=== PATIENT | female | born 1995 | race American Indian/Alaskan Native ===

== ENCOUNTER 2016-09-08 20:53 | Emergency (ER) | payer SELFPAY ==
[2016-09-08 20:54] VITALS: BMI 25.0
[2016-09-08 21:22] VITALS: RESP 20
--- NOTE | 2016-09-08 21:29 | ED PDOC ---
Arrival/HPI - General Chief Complaint: Abdominal Pain Time Seen by Provider: 09/08/16 21:15 Historian: Patient - History of Present Illness Narrative History of Present Illness (Text): 09/08/16 21:28 Leigha Caban is a 20 year old female, with no significant past medical history, who presents to the ED complaining of abdominal cramping for 1 week. Patient reports associated nausea and diarrhea. Patient denies any vomiting, urinary symptoms, fever, chills, chest pain, shortness of breath, or any other complaints. Time/Duration: 1 week Symptom Onset: Gradual Symptom Course: Unchanged Quality: Cramping Activities at Onset: Rest, Light Context: Home Past Medical History - Provider Review Nursing Documentation Reviewed: Yes - Past History Past History: No Previous - Infectious Disease Hx of Infectious Diseases: None - Tetanus Immunization Tetanus Immunization: Up to Date - Psychiatric Hx Psychophysiologic Disorder: No Hx Substance Use: No - Anesthesia Hx Anesthesia: No Family/Social History - Physician Review Nursing Documentation Reviewed: Yes Family/Social History: Unknown Family HX Smoking Status: Never Smoked Hx Alcohol Use: No Hx Substance Use: No Allergies/Home Meds Allergies/Adverse Reactions: Allergies No Known Allergies Allergy (Verified 12/02/14 12:22) Review of Systems - Physician Review All systems were reviewed & negative as marked: Yes - Review of Systems Constitutional: Normal. absent: Fevers Eyes: Normal ENT: Normal Respiratory: Normal. absent: SOB, Cough Cardiovascular: Normal. absent: Chest Pain Gastrointestinal: Abdominal Pain, Diarrhea, Nausea Genitourinary Female: Normal. absent: Dysuria, Frequency, Hematuria, Urine Output Changes Musculoskeletal: Normal. absent: Back Pain, Neck Pain Skin: Normal. absent: Rash Neurological: Normal. absent: Headache, Dizziness Endocrine: Normal Hemo/Lymphatic: Normal Psychiatric: Normal Physical Exam Vital Signs Reviewed: Yes Vital Signs Temp Pulse Resp BP Pulse Ox 09/08/16 21:17 99 F 73 20 154/81 H 97 Temperature: Afebrile Blood Pressure: Normal Pulse: Regular Respiratory Rate: Normal Appearance: Positive for: Well-Appearing, Non-Toxic, Comfortable Pain Distress: None Mental Status: Positive for: Alert and Oriented X 3 - Systems Exam Head: Present: Atraumatic, Normocephalic Pupils: Present: PERRL Extroacular Muscles: Present: EOMI Conjunctiva: Present: Normal Mouth: Present: Moist Mucous Membranes Neck: Present: Normal Range of Motion Respiratory/Chest: Present: Clear to Auscultation, Good Air Exchange. No: Respiratory Distress, Accessory Muscle Use Cardiovascular: Present: Regular Rate and Rhythm, Normal S1, S2. No: Murmurs Abdomen: Present: Normal Bowel Sounds. No: Tenderness, Distention, Peritoneal Signs Upper Extremity: Present: Normal Inspection. No: Cyanosis, Edema Lower Extremity: Present: Normal Inspection. No: Edema Neurological: Present: GCS=15, CN II-XII Intact, Speech Normal Skin: Present: Warm, Dry, Normal Color. No: Rashes Psychiatric: Present: Alert, Oriented x 3, Normal Insight, Normal Concentration Medical Decision Making ED Course and Treatment: 09/08/16 21:28 Impression: 20 year old female with abdominal cramping, nausea, and diarrhea for 1 week. Differential Diagnosis included but are not limited to: gastroenteritis Plan: -- Labs, lipase -- UA -- IV fluids -- Reassess and disposition Progress Notes: 09/08/16 21:47 RN reports positive urine HCG. Pt reports LNMP 2 weeks ago, P:0. Transvaginal US, beta-HCG, and blood type and screen ordered. 09/09/16 00:25 Reviewed sono, Transvaginal US shows: Transvaginal US shows: Uterus/cervix: Unremarkable in echogenicity and size measuring 6.5 x 3.3 x 4.4 cm. Normal endometrial stripe thickness, measuring 7.1 mm. No myometrial mass. Right ovary: Unremarkable in size measuring 3.6 x 2.6 x 3.9 cm. An anechoic focus is identified within the right ovary measuring 2.5 cm in greatest dimension. No mass. Normal blood flow. Left ovary: Unremarkable in echogenicity and size measuring 2.3 x 2.2 x 2.8 cm. No mass. Normal blood flow. Dominant follicle is detected measuring 9 mm in greatest dimension. Free fluid: No free fluid. IMPRESSION: Simple cyst within the right ovary measuring 2.5 cm in greatest dimension. 09/09/16 00:28 On re-evaluation, patient is resting comfortably, abdomen remains soft, and patient is tolerating PO. Patient feels comfortable going home. Patient will be discharged home. - Lab Interpretations Lab Results: 09/08/16 22:00 09/08/16 22:00 Lab Results 09/08/16 22:33: Blood Type Confirm O POSITIVE 09/08/16 22:00: Blood Type O POSITIVE, Antibody Screen Negative, BBK History Checked No verified bt 09/08/16 22:00: Beta HCG, Quant 2280.40 H 09/08/16 22:00: WBC 7.2, RBC 4.31, Hgb 12.1, Hct 38.1, MCV 88.4, MCH 28.1, MCHC 31.8, RDW 14.2, Plt Count 257, MPV 9.6 09/08/16 22:00: Sodium 139, Potassium 4.2, Chloride 103, Carbon Dioxide 26, Anion Gap 14, BUN 11, Creatinine 0.8, Est GFR ( Amer) > 60, Est GFR (Non- Af Amer) > 60, Random Glucose 77, Calcium 10.3, Total Bilirubin 0.4, AST 24, ALT 26, Alkaline Phosphatase 59, Total Protein 8.0, Albumin 4.4, Globulin 3.7, Albumin/Globulin Ratio 1.2, Lipase 208 09/08/16 22:00: Urine Color Yellow, Urine Appearance Clear, Urine pH 6.5, Ur Specific Mouthcard 1.025, Urine Protein Negative, Urine Glucose (UA) Negative, Urine Ketones Negative, Urine Blood Negative, Urine Nitrate Negative, Urine Bilirubin Negative, Urine Urobilinogen 0.2, Ur Leukocyte Esterase Negative, Urine HCG, Qual Positive I have reviewed the lab results: Yes - RAD Interpretation Radiology Orders: 09/08/16 21:47 TRANSVAGINAL [US] Stat Manager Cardiac: Radiologist - Medication Orders Current Medication Orders: Discontinued Medications Sodium Chloride (Sodium Chloride 0.9%) 1,000 mls @ 999 mls/hr IV .[id number] STA Stop: 09/08/16 22:30 Last Admin: 09/08/16 21:52 Dose: 999 mls/hr - Scribe Statement The provider has reviewed the documentation as recorded by the Gunjan Mason Provider Attestation: All medical record entries made by the Krishnaibsusan were at my direction and personally dictated by me. I have reviewed the chart and agree that the record accurately reflects my personal performance of the history, physical exam, medical decision making, and the department course for this patient. I have also personally directed, reviewed, and agree with the discharge instructions and disposition. Disposition/Present on Arrival - Present on Arrival Any Indicators Present on Arrival: No History of DVT/PE: No History of Uncontrolled Diabetes: No Urinary Catheter: No History of Decub. Ulcer: No History Surgical Site Infection Following: None - Disposition Have Diagnosis and Disposition been Completed?: Yes Diagnosis: Early stage of , Gastroenteritis Disposition: HOME/ ROUTINE Disposition Time: 00:28 Patient Plan: Discharge Patient Problems: Current Active Problems Problem Status Onset Early stage of Acute Gastroenteritis Acute Condition: GOOD Discharge Instructions (ExitCare): (ED), Gastroenteritis (ED) Additional Instructions: Drink plenty of liquids/rest/follow up with your armored truck driver this week Referrals: Momailirina Anderson Rejulia, [Primary Care Provider] - Follow up with primary Forms: WORK NOTE
[2016-09-08] MEDS ORDERED: Sodium Chloride 0.9% 1,000 ML IV STA (21:30)
[2016-09-08 22:15] LABS: HEMOGLOBIN 12.1 gm/dL (12.0-16.0); MEAN CELL VOLUME 88.4 fL (80.0-105.0); MEAN CORPUSCULAR HEMOGLOBIN 28.1 pg (25.0-35.0); MEAN CORPUSCULAR HGB CONC 31.8 g/dl (31.0-37.0); MEAN PLATELET VOLUME 9.6 fl (7.0-11.0); PH,URINE 6.5 (4.7-8.0); RBC 4.31 10^6/uL (3.5-6.1); RED CELL DISTRIBUTION WIDTH 14.2 % (11.5-14.5); URINE BILIRUBIN NEGATIVE (NEGATIVE); URINE BLOOD NEGATIVE (NEGATIVE); URINE GLUCOSE (UA) NEGATIVE (NEGATIVE); URINE LEUKOCYTE ESTERASE NEGATIVE Leu/uL (NEGATIVE); URINE NITRATE NEGATIVE (NEGATIVE); URINE PROTEIN NEGATIVE mg/dL (<30 mg/dL); URINE UROBILINOGEN 0.2 E.U./dL (<1 E.U./dL); WHITE BLOOD COUNT 7.2 10^3/ul (4.5-11.0)
[2016-09-08 22:19] LABS: URINE APPEARANCE CLEAR (CLEAR); URINE COLOR YELLOW (YELLOW)
[2016-09-08 22:20] LABS: ALB/GLOB RATIO 1.2 (1.1-1.8); ALBUMIN 4.4 g/dL (3.0-4.8); AST/SGOT 24 U/L (15-39); BLOOD UREA NITROGEN 11 mg/dL (7-21); CALCIUM 10.3 mg/dL (8.4-10.5); GFR AFRICAN-AMERICAN > 60; GFR NON-AFRICAN AMERICAN > 60; LIPASE 208 U/L (23-300)
[2016-09-08 22:21] LABS: HCG,QUALITATIVE URINE POSITIVE (NEGATIVE)
[2016-09-08 22:46] LABS: ALT/SGPT 26 U/L (7-56)
--- NOTE | 2016-09-08 23:46 | US ---
EXAM: US Pelvis, Transvaginal CLINICAL HISTORY: 20 years old, female; Pain; Abdominal pain; Lower abdomen TECHNIQUE: Real-time transvaginal pelvic ultrasound (complete) with image documentation. Transvaginal imaging was used for better evaluation of the endometrium and adnexa. COMPARISON: No relevant prior studies available. FINDINGS: Uterus/cervix: Unremarkable in echogenicity and size measuring 6.5 x 3.3 x 4.4 cm. Normal endometrial stripe thickness, measuring 7.1 mm. No myometrial mass. Right ovary: Unremarkable in size measuring 3.6 x 2.6 x 3.9 cm. An anechoic focus is identified within the right ovary measuring 2.5 cm in greatest dimension. No mass. Normal blood flow. Left ovary: Unremarkable in echogenicity and size measuring 2.3 x 2.2 x 2.8 cm. No mass. Normal blood flow. Dominant follicle is detected measuring 9 mm in greatest dimension. Free fluid: No free fluid. IMPRESSION: Simple cyst within the right ovary measuring 2.5 cm in greatest dimension.
[2016-09-09 00:52] VITALS: BP 124/83; PULSE 85; TEMP 98; O2SAT 98
== END 2016-09-09 00:57 | disposition home or self-care (01) ==
LOC: ED 20:53
DX: O26.891 Other specified pregnancy related conditions, first trimester (principal); K52.9 Noninfective gastroenteritis and colitis, unspecified; Z3A.00 Weeks of gestation of pregnancy not specified
CPT/HCPCS: 76830; 80053; 81003; 83690; 84702; 84703; 85027; 86850; 86900; 99284; J7040

== ENCOUNTER 2016-09-11 18:42 | Emergency (ER) | payer BC ==
[2016-09-11 19:00] VITALS: BMI 40.2
[2016-09-11 20:11] LABS: BASO # 0.02 K/mm3 (0.0-2.0); BASO % 0.3 % (0.0-3.0); EOS # 0.2 (0.0-0.7); EOS % 2.6 % (1.5-5.0); GRAN % 53.4 % (50.0-68.0); HEMOGLOBIN 11.5 gm/dL (12.0-16.0); LYMPH # 2.3 (1.2-3.4); LYMPH % 33.6 % (22.0-35.0); MEAN CORPUSCULAR HEMOGLOBIN 27.7 pg (25.0-35.0); MEAN CORPUSCULAR HGB CONC 31.9 g/dl (31.0-37.0); MONO # 0.7 (0.1-0.6); MONO % 10.1 % (1.0-6.0); PLATELET COUNT 246 10^3/uL (120.0-450.0); RBC 4.15 10^6/uL (3.5-6.1); RED CELL DISTRIBUTION WIDTH 14.2 % (11.5-14.5); WHITE BLOOD COUNT 6.9 10^3/ul (4.5-11.0)
[2016-09-11 20:18] LABS: ALB/GLOB RATIO 1.1 (1.1-1.8); ALBUMIN 4.1 g/dL (3.0-4.8); ALT/SGPT 25 U/L (7-56); AST/SGOT 25 U/L (15-39); BLOOD UREA NITROGEN 9 mg/dL (7-21); CALCIUM 9.2 mg/dL (8.4-10.5); GFR AFRICAN-AMERICAN > 60; GFR NON-AFRICAN AMERICAN > 60
[2016-09-11 20:20] LABS: INR 1.02 (0.93-1.08); PARTIAL THROMBOPLASTIN TIME 30.8 Seconds (23.7-30.8)
--- NOTE | 2016-09-11 20:51 | ED PDOC ---
Arrival/HPI - General Chief Complaint: Abdominal Pain Time Seen by Provider: 09/11/16 19:12 Historian: Patient - History of Present Illness Narrative History of Present Illness (Text): 09/11/16 19:27 Leigha Caban is a 20 year old female, currently , with no significant past medical history, who presents to the ED complaining of lower abdominal pain for the past couple of days. Patient reports associated vaginal bleeding. Patient states she is unsure how far along she is in her but notes her last normal menstrual period was 2 weeks ago. Patient denies any fever, chills, chest pain, shortness of breath, nausea, vomiting, diarrhea, neck pain, headache, dizziness, or any other complaints. Time/Duration: < week (2 days) Symptom Onset: Gradual Symptom Course: Unchanged Activities at Onset: Rest, Light Context: Home Past Medical History - Provider Review Nursing Documentation Reviewed: Yes - Past History Past History: No Previous - Infectious Disease Hx of Infectious Diseases: None - Tetanus Immunization Tetanus Immunization: Up to Date - Psychiatric Hx Psychophysiologic Disorder: No Hx Substance Use: No - Anesthesia Hx Anesthesia: No Family/Social History - Physician Review Nursing Documentation Reviewed: Yes Family/Social History: Unknown Family HX Smoking Status: Never Smoked Hx Alcohol Use: No Hx Substance Use: No Allergies/Home Meds Allergies/Adverse Reactions: Allergies No Known Allergies Allergy (Verified 12/02/14 12:22) Home Medications: Home Meds Medication Instructions Recorded Confirmed No Known Home Med 09/11/16 09/11/16 Review of Systems - Physician Review All systems were reviewed & negative as marked: Yes - Review of Systems Constitutional: Normal. absent: Fevers Eyes: Normal ENT: Normal Respiratory: Normal. absent: SOB, Cough Cardiovascular: Normal. absent: Chest Pain Gastrointestinal: Abdominal Pain. absent: Nausea, Vomiting Genitourinary Female: Vaginal Bleeding Musculoskeletal: Normal. absent: Back Pain, Neck Pain Skin: Normal Neurological: Normal. absent: Headache, Dizziness Endocrine: Normal Hemo/Lymphatic: Normal Psychiatric: Normal Physical Exam Vital Signs Reviewed: Yes Vital Signs Temp Pulse Resp BP Pulse Ox 09/12/16 00:14 98.4 F 84 18 110/78 100 09/11/16 22:49 86 18 100/80 99 09/11/16 18:59 98.0 F 75 16 130/51 L 98 Temperature: Afebrile Blood Pressure: Normal Pulse: Regular Respiratory Rate: Normal Appearance: Positive for: Well-Appearing, Non-Toxic, Comfortable Pain Distress: None Mental Status: Positive for: Alert and Oriented X 3 - Systems Exam Head: Present: Atraumatic, Normocephalic Pupils: Present: PERRL Extroacular Muscles: Present: EOMI Conjunctiva: Present: Normal Mouth: Present: Moist Mucous Membranes Neck: Present: Normal Range of Motion Respiratory/Chest: Present: Clear to Auscultation, Good Air Exchange. No: Respiratory Distress, Accessory Muscle Use Cardiovascular: Present: Regular Rate and Rhythm, Normal S1, S2. No: Murmurs Abdomen: Present: Normal Bowel Sounds. No: Tenderness, Distention, Peritoneal Signs Genitourinary/Pelvic Exam: Present: Normal External Genitalia, Cervical os Closed, Other (Small amount of blood in vaginal vault, MONISHA Hernandez present as vp security). No: Cervical Motion Tendernes Back: Present: Normal Inspection Upper Extremity: Present: Normal Inspection. No: Cyanosis, Edema Lower Extremity: Present: Normal Inspection. No: Edema Neurological: Present: GCS=15, CN II-XII Intact, Speech Normal Skin: Present: Warm, Dry, Normal Color. No: Rashes Psychiatric: Present: Alert, Oriented x 3, Normal Insight, Normal Concentration Medical Decision Making ED Course and Treatment: 09/11/16 19:27 Impression: 21 year old female complaining of lower abdominal pain and vaginal bleeding for 2 days. Plan: -- US Transvaginal -- Labs, Beta-HCG -- Reassess and disposition Prior Visits: Notes and results from previous visits were reviewed. On 09/09/2016, pt was seen in the Emergency department for abdominal cramping, nausea, and diarrhea. Pt was d/c home. Progress Notes: 09/11/16 22:20 Reviewed sono, Transvaginal US shows: Findings concerning for a right adnexal ectopic . MANAGER HOUSE surgical evaluation recommended. Previously seen simple right ovarian cyst has enlarged since the recent prior exam and now appears hemorrhagic. No ovarian torsion. This cyst should be followed to resolution with pelvic ultrasound. No intrauterine gestational sac. 09/11/16 22:31 Case discussed in detail with Dr. Pavon OBGYN television news video editor, who is aware and agrees with plan. States he will f/u with pt. 09/11/16 23:45 Pelvis exam performed, MONISHA Hernandez present as vp security, small amount of blood in vaginal vault, cervical os closed, no cervical motion tenderness. 09/12/16 00:16 On re-evaluation, bleeding has resolved, pt is in no acute distress. I have discussed the results and plan with the patient, who expresses understanding. Patient in agreement with plan to discharged home. Patient is stable for discharge. Patient was instructed to follow up with OBGYN/physician/clinic as soon as possible or return if symptoms worsen or new concerning symptoms arise. - Lab Interpretations Lab Results: 09/11/16 19:59 09/11/16 19:59 Lab Results 09/11/16 19:59: Urine HCG, Qual Positive 09/11/16 19:59: Beta HCG, Quant 3091.00 H 09/11/16 19:59: Sodium 137, Potassium 3.9, Chloride 102, Carbon Dioxide 27, Anion Gap 12, BUN 9, Creatinine 0.7, Est GFR ( Amer) > 60, Est GFR (Non- Af Amer) > 60, Random Glucose 83, Calcium 9.2, Total Bilirubin 0.5, AST 25, ALT 25, Alkaline Phosphatase 60, Total Protein 7.7, Albumin 4.1, Globulin 3.6, Albumin/Globulin Ratio 1.1 09/11/16 19:59: PT 11.0, INR 1.02, APTT 30.8 09/11/16 19:59: WBC 6.9, RBC 4.15, Hgb 11.5 L, Hct 36.1, MCV 87.0, MCH 27.7, MCHC 31.9, RDW 14.2, Plt Count 246, MPV 9.0, Gran % 53.4, Lymph % (Auto) 33.6, [place] % (Auto) 10.1 H, Eos % (Auto) 2.6, Baso % (Auto) 0.3, Gran # 3.70, Lymph # 2.3, [place] # 0.7 H, Eos # 0.2, Baso # 0.02 I have reviewed the lab results: Yes - RAD Interpretation Narrative RAD Interpretations (Text): Transvaginal US shows: Dictated and Authenticated by: Yessica Mc MD The uterus measures 6.8 x 3.4 x 4.6 cm while the endometrial stripe measures 3 mm in thickness. No visualized intrauterine gestational sac. Prior exam, there is a 2.5 cm simple cyst in the right ovary. On the current examination, this cyst has increased in size, measuring up to 3.5 cm, and now appears complex. No right ovarian torsion. In the right adnexa, there is a 1.6 cm complex cystic focus with surrounding free fluid not visualized on the prior exam. No visualized pole. The left ovary is normal in size, echotexture, and vascularity. There is a small amount of free fluid throughout the pelvis. IMPRESSION: Findings concerning for a right adnexal ectopic . MANAGER [employer]SE surgical evaluation recommended. Previously seen simple right ovarian cyst has enlarged since the recent prior exam and now appears hemorrhagic. No ovarian torsion. This cyst should be followed to resolution with pelvic ultrasound. No intrauterine gestational sac. Radiology Orders: 09/11/16 19:27 OB TRANSVAGINAL [US] Stat Deer Farmer: Radiologist - Scribe Statement The provider has reviewed the documentation as recorded by the Scribsusan Mason All medical record entries made by the Krishnaibe were at my direction and personally dictated by me. I have reviewed the chart and agree that the record accurately reflects my personal performance of the history, physical exam, medical decision making, and the department course for this patient. I have also personally directed, reviewed, and agree with the discharge instructions and disposition. Disposition/Present on Arrival - Present on Arrival Any Indicators Present on Arrival: No History of DVT/PE: No History of Uncontrolled Diabetes: No Urinary Catheter: No History of Decub. Ulcer: No History Surgical Site Infection Following: None - Disposition Have Diagnosis and Disposition been Completed?: Yes Diagnosis: Ectopic , Missed Disposition: HOME/ ROUTINE Disposition Time: 00:15 Condition: GOOD Discharge Instructions (ExitCare): Ectopic (ED), Spontaneous Miscarriage (ED) Additional Instructions: return for pain , heavy bleeding, follow up with dr pavon as soon as possible Referrals: Frank Pavon MD [Staff Provider] - Follow up with primary Forms: WORK NOTE
[2016-09-11 22:49] VITALS: RESP 18
[2016-09-12 00:16] VITALS: BP 110/78; PULSE 84; TEMP 98.4; O2SAT 100
--- NOTE | 2016-09-12 09:14 | US ---
PROCEDURE: OB Pelvic Ultrasound HISTORY: bleeding COMPARISON: None available. FINDINGS: UTERUS: No intrauterine gestation identified. Uterus measures 6.8 x 3.4 x 4.6 cm. No uterine mass. The endometrium measures 3 mm in width. There is no endometrial fluid. CERVIX: Long and closed. No cervical abnormality seen. RIGHT OVARY: Measures 6.1 x 3.5 x 4.4 cm. Complex cyst with heterogeneous internal echoes, 3.3 x 2.4 x 3.4 cm, likely hemorrhagic cyst. Normal flow demonstrated. . LEFT OVARY: Measures 2.5 x 1.9 x 2.8 cm. No mass. Normal flow. FREE FLUID: Small amount of free fluid in cul-de-sac. OTHER FINDINGS: There is a small ring-like structure in the right adnexal region separate from the right ovary. This measures 1.3 x 1.7 x 1.3 cm and is thick walled. There is no significant increased blood flow demonstrated in association with this structure on color Doppler interrogation. Nevertheless, the possibility of a right adnexal ectopic gestation must be considered. Correlation with serial beta HCG and transvaginal ultrasound is advised. IMPRESSION: Questionable right adnexal ectopic gestation. Followup with serial beta HCG and transvaginal ultrasound examination is advised. No intrauterine gestation. Probable hemorrhagic right ovarian cyst, 3.4 cm diameter. Follow-up advised. Preliminary interpretation of this examination was reported by [employer] at 10:18 p.m. on 09/11/2016. There is concurrence of this report with the preliminary interpretation.
== END 2016-09-12 00:15 | disposition home or self-care (01) ==
LOC: ED 18:42
DX: O02.1 Missed abortion (principal)

== ENCOUNTER 2018-07-29 08:27 | Emergency (ER) | payer BC ==
[2018-07-29 08:48] VITALS: BMI 38.4
--- NOTE | 2018-07-29 08:59 | ED PDOC ---
Arrival/HPI - General Historian: Patient - History of Present Illness Narrative History of Present Illness (Text): 07/29/18 09:00 A 22 year old female, whose past medical history includes ectopic , presents to the emergency department for test only. Patient reports she started having lower abdominal pain starting yesterday and became concerned. States LMP was 05/27/2018. Patient denies any fever, chills, back pain, vomiting, vaginal bleeding/discharge, or any other complaints at this time. Also, patient mentions she will be following-up with her ALL SOURCE ANALYST tomorrow. No PMD Past Medical History - Provider Review Nursing Documentation Reviewed: Yes - Past History Past History: No Previous - Infectious Disease Hx of Infectious Diseases: None - Tetanus Immunization Tetanus Immunization: Up to Date - Psychiatric Hx Psychophysiologic Disorder: No Hx Substance Use: No - Anesthesia Hx Anesthesia: No Family/Social History - Physician Review Nursing Documentation Reviewed: Yes Family/Social History: No Known Family HX Smoking Status: Never Smoked Hx Alcohol Use: No Hx Substance Use: No Allergies/Home Meds Allergies/Adverse Reactions: Allergies No Known Allergies Allergy (Verified 07/29/18 08:49) Home Medications: Home Meds Medication Instructions Recorded Confirmed No Known Home Med 09/11/16 07/29/18 Review of Systems - Physician Review All systems were reviewed & negative as marked: Yes - Review of Systems Constitutional: absent: Fevers, Night Sweats Gastrointestinal: Abdominal Pain (lower region). absent: Vomiting Genitourinary Female: absent: Vaginal Bleeding, Vaginal Discharge Musculoskeletal: absent: Back Pain Physical Exam Vital Signs Reviewed: Yes Temperature: Afebrile Blood Pressure: Normal Pulse: Regular Respiratory Rate: Normal Appearance: Positive for: Well-Appearing, Non-Toxic, Comfortable Pain Distress: None Mental Status: Positive for: Alert and Oriented X 3 - Systems Exam Head: Present: Atraumatic, Normocephalic Pupils: Present: PERRL Extroacular Muscles: Present: EOMI Conjunctiva: Present: Normal Mouth: Present: Moist Mucous Membranes Neck: Present: Normal Range of Motion Respiratory/Chest: Present: Clear to Auscultation, Good Air Exchange. No: Respiratory Distress, Accessory Muscle Use Cardiovascular: Present: Regular Rate and Rhythm, Normal S1, S2. No: Murmurs Abdomen: Present: Tenderness (suprapubic). No: Distention, Peritoneal Signs Back: Present: Normal Inspection Upper Extremity: Present: Normal Inspection. No: Cyanosis, Edema Lower Extremity: Present: Normal Inspection. No: Edema Neurological: Present: GCS=15, CN II-XII Intact, Speech Normal Skin: Present: Warm, Dry, Normal Color. No: Rashes Psychiatric: Present: Alert, Oriented x 3, Normal Insight, Normal Concentration Medical Decision Making ED Course and Treatment: 07/29/18 09:03 Impression: 22 year female here for test only. Physical exam shows suprapubic tenderness; otherwise no other acute findings on examination. Plan: -- POC Urine Test -- Urinalysis -- Reassess and disposition Progress Notes: - Scribe Statement The provider has reviewed the documentation as recorded by the Scribe Dominic Swanson Provider Scribe Attestation: All medical record entries made by the Scribe were at my direction and personally dictated by me. I have reviewed the chart and agree that the record accurately reflects my personal performance of the history, physical exam, medi ying decision making, and the department course for this patient. I have also personally directed, reviewed, and agree with the discharge instructions and disposition. Disposition/Present on Arrival - Present on Arrival Any Indicators Present on Arrival: No History of DVT/PE: No History of Uncontrolled Diabetes: No Urinary Catheter: No History Surgical Site Infection Following: None - Disposition Have Diagnosis and Disposition been Completed?: Yes Diagnosis: Disposition: HOME/ ROUTINE Disposition Time: 08:57 Patient Plan: Discharge Condition: STABLE Discharge Instructions (ExitCare): Care Print Language: TAJIK Additional Instructions: All medical record entries made by the Scribe were at my direction and personally dictated by me. I have reviewed the chart and agree that the record accurately reflects my personal performance of the history, physical exam, medical decision making, and the department course for this patient. I have also personally directed, reviewed, and agree with the discharge instructions and disposition. If you have any bleeding or vomiting, please return to the ER Please follow up with your in flight refueling operator tomorrow Referrals: Jace Cedeno MD [Medical Doctor] - Follow up with primary Forms: [facility] (Urdu), WORK NOTE
[2018-07-29 09:01] VITALS: BP 125/72; O2SAT 99
[2018-07-29 09:25] LABS: URINE BILIRUBIN NEGATIVE (NEGATIVE); URINE BLOOD NEGATIVE (NEGATIVE); URINE GLUCOSE (UA) NEGATIVE (NEGATIVE); URINE LEUKOCYTE ESTERASE NEGATIVE Leu/uL (NEGATIVE); URINE PROTEIN NEGATIVE mg/dL (<30 mg/dL); URINE UROBILINOGEN 0.2 E.U./dL (<1 E.U./dL)
[2018-07-29 09:33] LABS: URINE APPEARANCE CLEAR (CLEAR); URINE COLOR YELLOW (YELLOW)
[2018-07-29 09:35] VITALS: PULSE 79; RESP 19; TEMP 98
== END 2018-07-29 09:20 | disposition home or self-care (01) ==
LOC: ED 08:27
DX: Z32.00 Encounter for pregnancy test, result unknown (principal)